=== PATIENT | male | born 2000 | race Caucasian/White ===

== ENCOUNTER 2018-06-08 19:57 | Inpatient (IN) | payer MEDICAID ==
[2018-06-08 21:40] LABS: ADD MAN DIFF? NO
[2018-06-08 21:44] LABS: WHITE BLOOD COUNT 17.2 10^3/ul (4.8-10.8)
[2018-06-08 21:44] LABS: ABNORMAL IP MESSAGE 1; BASOPHIL # 0.1 10^3/ul (0.0-0.1); BASOPHILS % 0.3 % (0.0-2.0); EOSINOPHILS % 0.1 % (0.0-7.0); HEMATOCRIT 42.6 % (42.0-52.0); HEMOGLOBIN 14.7 g/dl (14.0-18.0); LYMPHOCYTES # 1.5 10^3/ul (0.8-2.9); LYMPHOCYTES % 8.9 % (18.0-55.0); MEAN CORPUSCULAR HEMOGLOBIN 31.1 pg (29.0-33.0); MEAN CORPUSCULAR HGB CONC 34.5 g/dl (32.0-37.0); MEAN CORPUSCULAR VOLUME 90.1 fl (72.0-104.0); MEAN PLATELET VOLUME 10.3 fl (7.4-10.4); MONOCYTE # 1.6 10^3/ul (0.3-0.9); NEUTROPHILS % 81.1 % (30.0-74.0); PLATELET COUNT 239 10^3/UL (140-415); POSITIVE DIFF @See below; RED BLOOD COUNT 4.73 10^6/ul (4.70-6.10)
[2018-06-08 22:03] LABS: LACTIC ACID 0.9 mmol/L (0.5-2.0)
[2018-06-08 22:04] LABS: ALANINE AMINOTRANSFERASE 23 IU/L (13-69); ALBUMIN 4.1 g/dl (3.3-4.9); ALBUMIN/GLOBULIN RATIO 1.28; ALKALINE PHOSPHATASE 106 IU/L (42-121); ANION GAP 13 (5-13); ASPARTATE AMINO TRANSFERASE 18 IU/L (15-46); BILIRUBIN,INDIRECT 0.9 mg/dl (0-1.1); BILIRUBIN,TOTAL 0.9 mg/dl (0.2-1.3); BLOOD UREA NITROGEN 7 mg/dl (7-20); CARBON DIOXIDE 25 mmol/L (21-31); CREATININE 0.66 mg/dl (0.61-1.24); Estimated GFR > 60 mL/min (>60); GLUCOSE 112 mg/dl (70-220); SODIUM 139 mmol/L (135-144); TOTAL PROTEIN 7.3 g/dl (6.1-8.1)
[2018-06-08 22:05] LABS: CHLORIDE 101 mmol/L (97-110)
[2018-06-08] MEDS: morphine 4 MG/ML VIAL IV (22:21)
[2018-06-08] MEDS: SOD CHLORIDE 0.9% 1,000 ML IV ×2 (22:22→23:00)
[2018-06-08] MEDS: VANCOMYCIN 1.25 GM in SOD CHLORIDE 0.9% 250 ML IVPB (22:29)
[2018-06-08] MEDS ORDERED: morphine 2 MG INJ IV (23:00)
[2018-06-08] MEDS ORDERED: ONDANSETRON 4 MG INJ IV ×2 (23:00)
[2018-06-08] MEDS ORDERED: NACL 0.9% 3 ML SYG IV (23:00)
[2018-06-08] MEDS ORDERED: ACETAMINOPHEN 325 MG TAB PO ×2 (23:00)
[2018-06-08] MEDS ORDERED: BISACODYL (EC) 5 MG TAB PO (23:00)
[2018-06-08] MEDS ORDERED: DOCUSATE SODIUM 100 MG CAP PO (23:00)
[2018-06-08] MEDS ORDERED: HYDROCODONE/APAP (5/325) TAB PO (23:00)
[2018-06-09] MEDS ORDERED: PENDING SANTYL ORDER FOR WOUND CARE XX (02:00)
[2018-06-09 05:40] LABS: ABNORMAL IP MESSAGE 1; ADD MAN DIFF? NO; BASOPHIL # 0.1 10^3/ul (0.0-0.1); BASOPHILS % 0.3 % (0.0-2.0); EOSINOPHILS # 0.1 10^3/ul (0.0-0.5); EOSINOPHILS % 0.4 % (0.0-7.0); HEMATOCRIT 39.5 % (42.0-52.0); HEMOGLOBIN 13.6 g/dl (14.0-18.0); LYMPHOCYTES # 1.9 10^3/ul (0.8-2.9); LYMPHOCYTES % 12.9 % (18.0-55.0); MEAN CORPUSCULAR HEMOGLOBIN 31.4 pg (29.0-33.0); MEAN CORPUSCULAR HGB CONC 34.4 g/dl (32.0-37.0); MEAN CORPUSCULAR VOLUME 91.2 fl (72.0-104.0); MEAN PLATELET VOLUME 10.5 fl (7.4-10.4); MONOCYTE # 1.5 10^3/ul (0.3-0.9); MONOCYTES % 10.6 % (0.0-13.0); NEUTROPHIL # 10.9 10^3/ul (1.6-7.5); NEUTROPHILS % 75.3 % (30.0-74.0); PLATELET COUNT 244 10^3/UL (140-415); POSITIVE DIFF @See below; RED BLOOD COUNT 4.33 10^6/ul (4.70-6.10); RED CELL DISTRIBUTION WIDTH 12.2 % (11.5-14.5)
[2018-06-09 05:40] LABS: WHITE BLOOD COUNT 14.5 10^3/ul (4.8-10.8)
[2018-06-09 06:09] LABS: ALANINE AMINOTRANSFERASE 18 IU/L (13-69); ALBUMIN 3.6 g/dl (3.3-4.9); ALBUMIN/GLOBULIN RATIO 1.16; ALKALINE PHOSPHATASE 86 IU/L (42-121); ANION GAP 9 (5-13); ASPARTATE AMINO TRANSFERASE 15 IU/L (15-46); BLOOD UREA NITROGEN 9 mg/dl (7-20); CALCIUM 8.8 mg/dl (8.4-10.2); CARBON DIOXIDE 28 mmol/L (21-31); CHLORIDE 102 mmol/L (97-110); CREATININE 0.71 mg/dl (0.61-1.24); Estimated GFR > 60 mL/min (>60); GLUCOSE 111 mg/dl (70-220); MAGNESIUM 2.1 mg/dl (1.7-2.5); POTASSIUM 4.1 mmol/L (3.5-5.1); SODIUM 139 mmol/L (135-144); TOTAL PROTEIN 6.7 g/dl (6.1-8.1)
[2018-06-09] MEDS ORDERED: VANCOMYCIN IV PER PHARMACY XX (10:00)
[2018-06-09] MEDS: PIPER-TAZO 3.375 GM IV (PMX) 100 ML IVPB ×3 (10:30→23:43)
[2018-06-09] MEDS: ENOXAPARIN 40 MG/0.4 ML SYG SC (10:30)
[2018-06-09] MEDS: VANCOMYCIN 1 GM 250 ML IVPB ×2 (11:12→18:50)
[2018-06-10] MEDS: VANCOMYCIN 1 GM 250 ML IVPB ×3 (02:09→20:32)
[2018-06-10] MEDS: PIPER-TAZO 3.375 GM IV (PMX) 100 ML IVPB ×4 (05:27→23:52)
[2018-06-10 07:04] LABS: ADD MAN DIFF? NO
[2018-06-10 07:08] LABS: WHITE BLOOD COUNT 12.2 10^3/ul (4.8-10.8)
[2018-06-10 07:08] LABS: BASOPHILS % 0.2 % (0.0-2.0); EOSINOPHILS # 0.2 10^3/ul (0.0-0.5); EOSINOPHILS % 1.2 % (0.0-7.0); HEMATOCRIT 39.7 % (42.0-52.0); HEMOGLOBIN 13.4 g/dl (14.0-18.0); LYMPHOCYTES # 1.4 10^3/ul (0.8-2.9); LYMPHOCYTES % 11.6 % (18.0-55.0); MEAN CORPUSCULAR HEMOGLOBIN 30.7 pg (29.0-33.0); MEAN CORPUSCULAR HGB CONC 33.8 g/dl (32.0-37.0); MEAN CORPUSCULAR VOLUME 91.1 fl (72.0-104.0); MEAN PLATELET VOLUME 10.5 fl (7.4-10.4); MONOCYTES % 8.4 % (0.0-13.0); NEUTROPHIL # 9.5 10^3/ul (1.6-7.5); PLATELET COUNT 268 10^3/UL (140-415); RED BLOOD COUNT 4.36 10^6/ul (4.70-6.10); RED CELL DISTRIBUTION WIDTH 12.1 % (11.5-14.5)
[2018-06-10 07:34] LABS: ANION GAP 12 (5-13); BLOOD UREA NITROGEN 8 mg/dl (7-20); CALCIUM 8.8 mg/dl (8.4-10.2); CARBON DIOXIDE 25 mmol/L (21-31); CHLORIDE 104 mmol/L (97-110); CREATININE 0.72 mg/dl (0.61-1.24); Estimated GFR > 60 mL/min (>60); GLUCOSE 108 mg/dl (70-220); SODIUM 141 mmol/L (135-144)
[2018-06-10] MEDS: ENOXAPARIN 40 MG/0.4 ML SYG SC (08:40)
[2018-06-10 20:15] LABS: VANCOMYCIN,TROUGH 7.1 ug/ml (10.0-20.0)
[2018-06-11] MEDS ORDERED: VANCOMYCIN 1.25 GM in SOD CHLORIDE 0.9% 250 ML IVPB (03:00)
[2018-06-11] MEDS: VANCOMYCIN 1.25 GM in SOD CHLORIDE 0.9% 250 ML IVPB ×2 (03:38→12:19)
[2018-06-11] MEDS: PIPER-TAZO 3.375 GM IV (PMX) 100 ML IVPB ×2 (06:39→15:33)
[2018-06-11 06:53] LABS: ADD MAN DIFF? NO; BASOPHIL # 0.1 10^3/ul (0.0-0.1); BASOPHILS % 0.5 % (0.0-2.0); EOSINOPHILS # 0.3 10^3/ul (0.0-0.5); EOSINOPHILS % 2.8 % (0.0-7.0); HEMATOCRIT 38.3 % (42.0-52.0); LYMPHOCYTES # 1.5 10^3/ul (0.8-2.9); LYMPHOCYTES % 15.4 % (18.0-55.0); MEAN CORPUSCULAR HEMOGLOBIN 31.2 pg (29.0-33.0); MEAN CORPUSCULAR HGB CONC 33.9 g/dl (32.0-37.0); MEAN CORPUSCULAR VOLUME 91.8 fl (72.0-104.0); MEAN PLATELET VOLUME 10.4 fl (7.4-10.4); MONOCYTE # 0.9 10^3/ul (0.3-0.9); MONOCYTES % 8.7 % (0.0-13.0); NEUTROPHIL # 7.2 10^3/ul (1.6-7.5); NEUTROPHILS % 72.2 % (30.0-74.0); PLATELET COUNT 286 10^3/UL (140-415); RED BLOOD COUNT 4.17 10^6/ul (4.70-6.10); RED CELL DISTRIBUTION WIDTH 12.2 % (11.5-14.5)
[2018-06-11 06:53] LABS: WHITE BLOOD COUNT 9.9 10^3/ul (4.8-10.8)
[2018-06-11] MEDS: ENOXAPARIN 40 MG/0.4 ML SYG SC (08:31)
== END 2018-06-11 17:13 | disposition home or self-care (01) | DRG 872 ==
LOC: PP2 22:48 → FTE 19:57
DX: A41.9 Sepsis, unspecified organism (principal); L03.116 Cellulitis of left lower limb; B95.62 Methicillin resistant Staphylococcus aureus infection as the cause of diseases classified elsewhere
CPT/HCPCS: 73590; 73610; 80048; 80053; 80202; 83036; 83605; 83735; 85025; 87040; 87070; 90686; 93971; 96365; 96375; 99285-25; G0378